=== PATIENT | female | born 1940 | race Caucasian/White ===

== ENCOUNTER 2017-05-04 11:20 | Inpatient (IN) | payer MEDICARE, OTHER ==
[2017-05-04] MEDS ORDERED: Temazepam 15 MG Cap PO PRN (11:43)
[2017-05-04] MEDS ORDERED: Albuterol 0.083% 2.5 MG/3 ML Neb Soln NEB PRN (11:43)
[2017-05-04] MEDS ORDERED: Ondansetron 4 MG Tab.DIS PO PRN (11:43)
[2017-05-04] MEDS ORDERED: Sodium Chloride 0.9% 10 ML Syringe FLUSH PRN (11:43)
[2017-05-04] MEDS ORDERED: Magnesium Hydroxide 400 MG/5 ML Susp 30 ML Cup PO PRN (11:43)
[2017-05-04] MEDS ORDERED: Acetaminophen 325 MG Tab PO PRN (11:43)
[2017-05-04 12:21] LABS: CHLORIDE,CL 98 mEq/L (98-106); SODIUM,NA 135 mEq/L (136-145)
[2017-05-04] MEDS ORDERED: Non-Formulary Medication 1 Each (Fluticasone/Vilanterol [Breo Ellipta 200-25 Mcg Inh] 1 EA IH PRN (12:35)
[2017-05-04] MEDS: Levofloxacin/Dextrose 5%-Water 500 MG in Premix Bag 1 BAG IV SCH (12:43)
[2017-05-04] MEDS: methylPREDNISolone Sodium Succinate 125 MG/2 ML SDV IVPUSH SCH ×2 (12:44→22:51)
[2017-05-04] MEDS: Sodium Chloride 0.9% 1,000 ML IV SCH ×2 (12:44→20:23)
[2017-05-04] MEDS: Albuterol/Ipratropium 3.0-0.5 MG/3 ML Neb Soln NEB SCH ×3 (12:44→20:23)
[2017-05-04] MEDS: Enoxaparin 40 MG/0.4 ML Syringe SUBCUT SCH (14:03)
[2017-05-04] MEDS ORDERED: Multivitamin Tab PO SCH (20:00)
[2017-05-04] MEDS: Simvastatin 20 MG Tab ** OWN MED PO SCH (20:26)
[2017-05-04] MEDS: ATENOLOL 25 MG PO SCH (20:26)
[2017-05-04] MEDS: BIMATOPROST EYEBOTH SCH (22:51)
[2017-05-05] MEDS: Sodium Chloride 0.9% 1,000 ML IV SCH (04:35)
[2017-05-05 07:12] LABS: CHLORIDE,CL 105 mEq/L (98-106); SODIUM,NA 140 mEq/L (136-145)
[2017-05-05] MEDS: methylPREDNISolone Sodium Succinate 125 MG/2 ML SDV IVPUSH SCH ×2 (07:25→20:11)
[2017-05-05] MEDS: Albuterol/Ipratropium 3.0-0.5 MG/3 ML Neb Soln NEB SCH ×4 (07:25→20:10)
[2017-05-05] MEDS: [UNRECOGNIZED DRUG - OTHER] PO SCH (07:26)
[2017-05-05] MEDS: [UNRECOGNIZED DRUG - OTHER] PO SCH (07:26)
[2017-05-05] MEDS: Lisinopril 20 MG Tab ** OWN MED PO SCH (07:27)
[2017-05-05] MEDS ORDERED: Lisinopril 20 MG Tab PO SCH (08:00)
[2017-05-05] MEDS: Levofloxacin/Dextrose 5%-Water 500 MG in Premix Bag 1 BAG IV SCH (12:41)
[2017-05-05] MEDS: Enoxaparin 40 MG/0.4 ML Syringe SUBCUT SCH (12:41)
--- NOTE | 2017-05-05 12:50 | PCM.PN ---
- General Info Date of Service: 05/05/17 Admission Dx/Problem (Free Text): Bronchitis Functional Status: Reports: Pain Controlled, Tolerating Diet. Denies: Ambulating - Review of Systems General: Reports: Weakness, Fatigue. Denies: Fever HEENT: Reports: Rhinitis. Denies: Sore Throat Pulmonary: Reports: Shortness of Breath, Cough, Wheezing Cardiovascular: Reports: No Symptoms Gastrointestinal: Denies: Abdominal Pain, Constipation, Diarrhea, Nausea, Vomiting Genitourinary: Reports: No Symptoms Musculoskeletal: Reports: No Symptoms Skin: Reports: No Symptoms Neurological: Reports: No Symptoms, Gait Disturbance - Patient Data Vitals - Most Recent: Last Vital Signs Temp 98.3 F 05/05/17 11:30 Pulse 68 05/05/17 11:30 Resp 20 05/05/17 11:30 BP 137/69 05/05/17 11:30 Pulse Ox 92 L 05/05/17 11:30 Weight - Most Recent: 190 lb I&O - Last 24 Hours: Intake & Output 05/04/17 05/05/17 05/05/17 22:59 06:59 14:59 Intake Total 956 1000 Balance 956 1000 Lab Results Last 24 Hours: Laboratory Results - last 24 hr 05/05/17 05/05/17 Range/Units 06:45 06:45 WBC 7.4 (5.0-10.0) 10^3/uL RBC 4.24 (4.00-5.50) 10^6/uL Hgb 12.5 (12.0-16.0) g/dL Hct 37.9 (37.0-47.0) % MCV 89.4 (82.0-94.0) fL MCH 29.5 (27.0-32.0) pg MCHC 33.0 (33.0-38.0) g/dL RDW Coeff of [place] 13.9 (11.0-15.0) % Plt Count 172 (150-400) 10^3/uL Neut % (Auto) 83.4 (35-85) % Lymph % (Auto) 13.8 (10-55) % [place] % (Auto) 2.7 (0-16) % Eos % (Auto) 0.1 (0-5) % Baso % (Auto) 0 (0-3) % Neut # (Auto) 6.16 (1.80-7.00) 10^3/uL Lymph # (Auto) 1.02 (1.00-4.80) 10^3/uL [place] # (Auto) 0.20 (0.00-0.80) 10^3/uL Eos # (Auto) 0.01 (0.00-0.45) 10^3/uL Baso # (Auto) 0.00 10^3/uL Sodium 140 (136-145) mEq/L Potassium 4.7 (3.5-5.0) mEq/L Chloride 105 (98-106) mEq/L Carbon Dioxide 28 (21-32) mmol/L BUN 10 (7-18) mg/dL Creatinine 0.6 (0.6-1.0) mg/dL Est Cr Clr Drug Dosing 65.98 mL/min Estimated GFR (MDRD) > 60 (>=60) mL/min Glucose 159 H D (75-99) mg/dL Calcium 8.6 (8.4-10.1) mg/dL C-Reactive Protein 15.1 H (0.2-0.8) mg/dL Med Orders - Current: Current Medications Acetaminophen (Tylenol) 650 mg PO Q4H PRN PRN Reason: Pain (Mild 1-3)/fever Albuterol (Proventil Neb Soln) 2.5 mg NEB Q4H PRN PRN Reason: Dyspnea Albuterol/Ipratropium (Duoneb 3.0-0.5 Mg/3 Ml) 3 ml NEB QIDRT [facility] Last Admin: 05/05/17 12:41 Dose: 3 ml Atenolol (Tenormin) 25 mg PO BEDTIME [facility] Last Admin: 05/04/17 20:26 Dose: Not Given Enoxaparin Sodium (Lovenox) 40 mg SUBCUT Q24H [facility] Last Admin: 05/05/17 12:41 Dose: 40 mg Levofloxacin/Dextrose 500 mg/ (Premix) 100 mls @ 100 mls/hr IV Q24H [facility] Last Admin: 05/05/17 12:41 Dose: 100 mls/hr Lisinopril (Prinivil) 10 mg PO DAILY [facility] Last Admin: 05/05/17 07:27 Dose: 10 mg Magnesium Hydroxide (Milk Of Magnesia) 30 ml PO Q12H PRN PRN Reason: Constipation Methylprednisolone Sodium Succinate (Solu-Medrol) 125 mg IVPUSH Q12H [facility] Last Admin: 05/05/17 07:25 Dose: 125 mg Non-Formulary Medication (Fluticasone/Vilanterol [Breo Ellipta 200-25 Mcg Inh]) 1 each IH ASDIRECTED PRN PRN Reason: Shortness of Breath Ocucel Complex 1 Tab ( Own Med ) 1 tab PO DAILY [facility] Last Admin: 05/05/17 07:26 Dose: 1 tab Ocular Nutrition Vitamin 3 Tab Own Med 3 tab PO DAILY [facility] Last Admin: 05/05/17 07:26 Dose: 3 tab Bimatoprost [Lumigan 0.01% Ophth Soln] Ophth Own Med 1 drop EYEBOTH BEDTIME [facility] Last Admin: 05/04/17 22:51 Dose: 1 drop Multi For Her (Multi (-Vit) Own Med ) 1 each PO BEDTIME [facility] Ondansetron HCl (Zofran Odt) 4 mg PO Q4H PRN PRN Reason: nausea, able to take PO Promethazine HCl/Codeine (Phenergan With Codeine) 10 ml PO Q6H PRN PRN Reason: Cough Simvastatin (Zocor) 20 mg PO BEDTIME [facility] Last Admin: 05/04/17 20:26 Dose: Not Given Sodium Chloride (Saline Flush) 10 ml FLUSH ASDIRECTED PRN PRN Reason: Keep Vein Open Temazepam (Restoril) 15 mg PO BEDTIME PRN PRN Reason: Sleep Discontinued Medications Sodium Chloride (Normal Saline) 1,000 mls @ 125 mls/hr IV ASDIRECTED [facility] Last Admin: 05/05/17 04:35 Dose: 125 mls/hr Methylprednisolone Sodium Succinate (Solu-Medrol) 125 mg IVPUSH Q12H [facility] Last Admin: 05/04/17 22:51 Dose: 125 mg Multivitamins/Minerals/Vitamin C (Tab-A-Connie) 1 tab PO BEDTIME [facility] Last Admin: 05/04/17 20:26 Dose: Not Given - Exam Quality Assessment: Supplemental Oxygen General: Alert, Oriented HEENT: Mucous Membr. Moist/[place] Neck: Supple Lungs: Decreased Breath Sounds, Wheezing Cardiovascular: Regular Rate, Regular Rhythm GI/Abdominal Exam: Normal Bowel Sounds, Soft, Non-Tender Extremities: Normal Inspection, No Pedal Edema Skin: Warm, Dry Neurological: No New Focal Deficit Psy/Mental Status: Alert, Normal Affect, Normal Mood - Problem List & Annotations (1) Bronchitis SNOMED Code(s): 45271830 Code(s): J40 - BRONCHITIS, NOT SPECIFIED ACUTE OR CHRONIC Status: Acute Priority: High Current Visit: Yes (2) Shortness of breath SNOMED Code(s): 012583487 Code(s): R06.02 - SHORTNESS OF BREATH Status: Acute Priority: High Current Visit: Yes - Problem List Review Problem List Initiated/Reviewed/Updated: Yes - My Orders Last 24 Hours: My Active Orders 05/04/17 11:46 RT Aerosol Therapy [RC] 0800,1200,1600,199905/04/17 12:00 Albuterol/Ipratropium [DuoNeb 3.0-0.5 MG/3 ML] 3 ml NEB QIDRT Levofloxacin/Dextrose 5%-Water [Levaquin in D5W 500 MG/100 ML] 500 mg Premix Bag 1 bag IV Q24H 05/04/17 12:35 Fluticasone/Vilanterol [Breo Ellipta 200-25 Mcg INH] 1 each IH ASDIRECTED PRN 05/04/17 13:00 Enoxaparin [Lovenox] 40 mg SUBCUT Q24H 05/04/17 13:36 Antiembolic Devices [RC] 1000,2200 [place] Hose [Antiembolic Hose] [OM.PC] Routine 05/04/17 20:00 Atenolol [Tenormin] 25 mg PO BEDTIME Bimatoprost [LUMIGAN 0.01% Ophth Soln] 1 drop EYEBOTH BEDTIME Simvastatin [Zocor] 20 mg PO BEDTIME 05/04/17 22:12 Non-Formulary Medication [NF Drug] 1 each PO BEDTIME 05/04/17 Lunch Regular Diet [DIET] 05/05/17 08:00 Lisinopril [Prinivil] 10 mg PO DAILY Ocucel Complex 1 tab PO DAILY Ocular Nutrition Vitamin 3 tab PO DAILY methylPREDNISolone Sod Succ [Solu-MEDROL] 125 mg IVPUSH Q12H 05/05/17 11:42 INFLUENZA A+B AG SCREEN [RM] Stat 05/05/17 11:43 Codeine/Promethazine [Phenergan with Codeine] 10 ml PO Q6H PRN 05/05/17 12:35 C-REACTIVE PROTEIN [CHEM] Timed 05/06/17 05:11 BASIC METABOLIC PANEL,BMP [CHEM] AM CBC WITH AUTO DIFF [HEME] AM - Assessment Assessment:: Bronchitis Shortness of breath - Plan Plan:: Patient not feeling well today, states was doing better yesterday afternoon but more "tough" again this am. Chest more tight. She does admit that she did not sleep much last night due to cough. More wheezy again this am. Oxygen weaned down to 1 liter, maintaining sats at 92%. Voiding frequently now. Labs show improvement of WBC, CRP. Will continue with Levaquin, Solu Medrol and nebs. Stop IV fluids. Test for influenza. Transferred to acute care.
[2017-05-05] MEDS: Simvastatin 20 MG Tab ** OWN MED PO SCH (20:11)
[2017-05-05] MEDS: BIMATOPROST EYEBOTH SCH (20:11)
[2017-05-05] MEDS: MULTI FOR HER PO SCH (20:11)
[2017-05-05] MEDS: ATENOLOL 25 MG PO SCH (20:11)
[2017-05-05] MEDS: Codeine/Promethazine 10-6.25 MG/5 ML Syrup 5 ML UD Cup PO PRN (20:14)
[2017-05-06] MEDS: Lisinopril 20 MG Tab ** OWN MED PO SCH (07:28)
[2017-05-06] MEDS: Albuterol/Ipratropium 3.0-0.5 MG/3 ML Neb Soln NEB SCH ×4 (07:28→19:25)
[2017-05-06] MEDS: methylPREDNISolone Sodium Succinate 125 MG/2 ML SDV IVPUSH SCH ×2 (07:29→19:25)
[2017-05-06 07:30] LABS: CHLORIDE,CL 105 mEq/L (98-106); SODIUM,NA 141 mEq/L (136-145)
[2017-05-06] MEDS: [UNRECOGNIZED DRUG - OTHER] PO SCH (07:33)
[2017-05-06] MEDS: [UNRECOGNIZED DRUG - OTHER] PO SCH (07:33)
[2017-05-06] MEDS: Enoxaparin 40 MG/0.4 ML Syringe SUBCUT SCH (12:18)
[2017-05-06] MEDS: Levofloxacin/Dextrose 5%-Water 500 MG in Premix Bag 1 BAG IV SCH (12:18)
--- NOTE | 2017-05-06 13:05 | PCM.PN ---
- General Info Date of Service: 05/06/17 Admission Dx/Problem (Free Text): Bronchitis Functional Status: Reports: Pain Controlled, Tolerating Diet. Denies: Ambulating - Review of Systems General: Reports: Weakness, Fatigue, Malaise. Denies: Fever HEENT: Reports: Sinus Congestion, Rhinitis. Denies: Ear Pain, Sore Throat Pulmonary: Reports: Shortness of Breath, Cough, Wheezing. Denies: Sputum Cardiovascular: Denies: Chest Pain, Edema, Lightheadedness Gastrointestinal: Denies: Abdominal Pain, Nausea, Vomiting Genitourinary: Reports: No Symptoms Skin: Reports: No Symptoms Neurological: Reports: No Symptoms - Patient Data Vitals - Most Recent: Last Vital Signs Temp 98.2 F 05/06/17 12:00 Pulse 79 05/06/17 12:00 Resp 18 05/06/17 12:00 BP 151/64 H 05/06/17 12:00 Pulse Ox 96 05/06/17 12:00 Weight - Most Recent: 190 lb Lab Results Last 24 Hours: Laboratory Results - last 24 hr 05/06/17 05/06/17 Range/Units 07:00 07:00 WBC 12.4 H (5.0-10.0) 10^3/uL RBC 4.01 (4.00-5.50) 10^6/uL Hgb 11.8 L (12.0-16.0) g/dL Hct 36.3 L (37.0-47.0) % MCV 90.5 (82.0-94.0) fL MCH 29.4 (27.0-32.0) pg MCHC 32.5 L (33.0-38.0) g/dL RDW Coeff of [place] 14.0 (11.0-15.0) % Plt Count 198 (150-400) 10^3/uL Neut % (Auto) 85.7 H (35-85) % Lymph % (Auto) 8.5 L (10-55) % [place] % (Auto) 5.8 (0-16) % Eos % (Auto) 0 (0-5) % Baso % (Auto) 0 (0-3) % Neut # (Auto) 10.65 H (1.80-7.00) 10^3/uL Lymph # (Auto) 1.06 (1.00-4.80) 10^3/uL [place] # (Auto) 0.72 (0.00-0.80) 10^3/uL Eos # (Auto) 0.00 (0.00-0.45) 10^3/uL Baso # (Auto) 0.00 10^3/uL Sodium 141 (136-145) mEq/L Potassium 4.5 (3.5-5.0) mEq/L Chloride 105 (98-106) mEq/L Carbon Dioxide 29 (21-32) mmol/L BUN 14 (7-18) mg/dL Creatinine 0.7 (0.6-1.0) mg/dL Est Cr Clr Drug Dosing 56.56 mL/min Estimated GFR (MDRD) > 60 (>=60) mL/min Glucose 142 H (75-99) mg/dL Calcium 8.7 (8.4-10.1) mg/dL [place] Results Last 24 Hours: Microbiology 05/05/17 12:35 Influenza Type A Antigen Screen - Final Nasopharyngeal Swab - Nare, Unspecified NEGATIVE INFLUENZA A VIRUS AG Influenza Type B Antigen Screen - Final NEGATIVE INFLUENZA B VIRUS AG Med Orders - Current: Current Medications Acetaminophen (Tylenol) 650 mg PO Q4H PRN PRN Reason: Pain (Mild 1-3)/fever Albuterol (Proventil Neb Soln) 2.5 mg NEB Q4H PRN PRN Reason: Dyspnea Albuterol/Ipratropium (Duoneb 3.0-0.5 Mg/3 Ml) 3 ml NEB QIDRT [facility] Last Admin: 05/06/17 12:18 Dose: 3 ml Atenolol (Tenormin) 25 mg PO BEDTIME [facility] Last Admin: 05/05/17 20:11 Dose: 25 mg Enoxaparin Sodium (Lovenox) 40 mg SUBCUT Q24H [facility] Last Admin: 05/06/17 12:18 Dose: 40 mg Levofloxacin/Dextrose 500 mg/ (Premix) 100 mls @ 100 mls/hr IV Q24H [facility] Last Admin: 05/06/17 12:18 Dose: 100 mls/hr Lisinopril (Prinivil) 10 mg PO DAILY [facility] Last Admin: 05/06/17 07:28 Dose: 10 mg Magnesium Hydroxide (Milk Of Magnesia) 30 ml PO Q12H PRN PRN Reason: Constipation Methylprednisolone Sodium Succinate (Solu-Medrol) 125 mg IVPUSH Q12H [facility] Last Admin: 05/06/17 07:29 Dose: 125 mg Non-Formulary Medication (Fluticasone/Vilanterol [Breo Ellipta 200-25 Mcg Inh]) 1 each IH ASDIRECTED PRN PRN Reason: Shortness of Breath Ocucel Complex 1 Tab ( Own Med ) 1 tab PO DAILY [facility] Last Admin: 05/06/17 07:33 Dose: 1 tab Ocular Nutrition Vitamin 3 Tab Own Med 3 tab PO DAILY [facility] Last Admin: 05/06/17 07:33 Dose: 3 tab Bimatoprost [Lumigan 0.01% Ophth Soln] Ophth Own Med 1 drop EYEBOTH BEDTIME [facility] Last Admin: 05/05/17 20:11 Dose: 1 drop Multi For Her (Multi (-Vit) Own Med ) 1 each PO BEDTIME [facility] Last Admin: 05/05/17 20:11 Dose: 1 each Ondansetron HCl (Zofran Odt) 4 mg PO Q4H PRN PRN Reason: nausea, able to take PO Promethazine HCl/Codeine (Phenergan With Codeine) 10 ml PO Q6H PRN PRN Reason: Cough Last Admin: 05/05/17 20:14 Dose: 10 ml Simvastatin (Zocor) 20 mg PO BEDTIME [facility] Last Admin: 05/05/17 20:11 Dose: 20 mg Sodium Chloride (Saline Flush) 10 ml FLUSH ASDIRECTED PRN PRN Reason: Keep Vein Open Temazepam (Restoril) 15 mg PO BEDTIME PRN PRN Reason: Sleep Discontinued Medications Sodium Chloride (Normal Saline) 1,000 mls @ 125 mls/hr IV ASDIRECTED [facility] Last Admin: 05/05/17 04:35 Dose: 125 mls/hr Methylprednisolone Sodium Succinate (Solu-Medrol) 125 mg IVPUSH Q12H [facility] Last Admin: 05/04/17 22:51 Dose: 125 mg Multivitamins/Minerals/Vitamin C (Tab-A-Connie) 1 tab PO BEDTIME [facility] Last Admin: 05/04/17 20:26 Dose: Not Given - Exam General: Alert, Oriented HEENT: Mucous Membr. Moist/[place] Neck: Supple Lungs: Decreased Breath Sounds, Wheezing Cardiovascular: Regular Rate, Regular Rhythm GI/Abdominal Exam: Normal Bowel Sounds, Soft, Non-Tender Extremities: Normal Inspection, No Pedal Edema Skin: Warm, Dry Neurological: No New Focal Deficit - Problem List & Annotations (1) Bronchitis SNOMED Code(s): 47348928 Code(s): J40 - BRONCHITIS, NOT SPECIFIED ACUTE OR CHRONIC Status: Acute Priority: High Current Visit: Yes (2) Shortness of breath SNOMED Code(s): 034098893 Code(s): R06.02 - SHORTNESS OF BREATH Status: Acute Priority: High Current Visit: Yes - Problem List Review Problem List Initiated/Reviewed/Updated: Yes - Assessment Assessment:: Bronchitis Shortness of breath - Plan Plan:: Patient not feeling well today, states was doing better yesterday afternoon but more "tough" again this am. Chest more tight. She does admit that she did not sleep much last night due to cough. More wheezy again this am. Oxygen weaned down to 1 liter, maintaining sats at 92%. Voiding frequently now. Labs show improvement of WBC, CRP. Will continue with Levaquin, Solu Medrol and nebs. Stop IV fluids. Test for influenza. Transferred to acute care. 05-06-2017 Patient states feeling better today, was able to sleep last night. Still feels tightness in her chest, audible wheezing at times. Continues to require 1 liter of oxygen to maintain sats. WBC elevated to 12.4 today but is receiving IV Solu Medrol every 2 hours, CRP stable at 15.3. Appetite good Will continue with Levaquin, Solu Medrol. Encouraged ambulation. Ongoing cares. Inappropriate for discharge today due to lung status and oxygen requirement.
[2017-05-06] MEDS: Codeine/Promethazine 10-6.25 MG/5 ML Syrup 5 ML UD Cup PO PRN (15:53)
[2017-05-06] MEDS: BIMATOPROST EYEBOTH SCH (19:22)
[2017-05-06] MEDS: MULTI FOR HER PO SCH (19:23)
[2017-05-06] MEDS: Simvastatin 20 MG Tab ** OWN MED PO SCH (19:24)
[2017-05-06] MEDS: ATENOLOL 25 MG PO SCH (19:24)
[2017-05-07] MEDS: methylPREDNISolone Sodium Succinate 125 MG/2 ML SDV IVPUSH SCH ×2 (07:37→19:48)
[2017-05-07] MEDS: Lisinopril 20 MG Tab ** OWN MED PO SCH (07:37)
[2017-05-07] MEDS: Albuterol/Ipratropium 3.0-0.5 MG/3 ML Neb Soln NEB SCH ×4 (07:37→19:48)
[2017-05-07] MEDS: [UNRECOGNIZED DRUG - OTHER] PO SCH (07:38)
[2017-05-07] MEDS: [UNRECOGNIZED DRUG - OTHER] PO SCH (07:38)
--- NOTE | 2017-05-07 10:48 | PCM.PN ---
- General Info Date of Service: 05/07/17 Admission Dx/Problem (Free Text): Bronchitis Functional Status: Reports: Pain Controlled, Tolerating Diet, Ambulating - Review of Systems General: Reports: Fatigue. Denies: Fever, Weakness HEENT: Denies: Ear Pain, Sinus Congestion, Sore Throat Pulmonary: Reports: Shortness of Breath, Cough, Wheezing Cardiovascular: Denies: Chest Pain, Edema, Lightheadedness Gastrointestinal: Reports: No Symptoms Genitourinary: Reports: No Symptoms Musculoskeletal: Reports: No Symptoms Skin: Reports: No Symptoms Neurological: Reports: No Symptoms - Patient Data Vitals - Most Recent: Last Vital Signs Temp 97.4 F 05/07/17 08:00 Pulse 56 L 05/07/17 08:00 Resp 24 H 05/07/17 08:00 BP 150/68 H 05/07/17 08:00 Pulse Ox 95 05/07/17 08:00 Weight - Most Recent: 190 lb Lab Results Last 24 Hours: Laboratory Results - last 24 hr 05/07/17 05/07/17 Range/Units 05:11 07:00 WBC 10.7 H (5.0-10.0) 10^3/uL RBC 3.91 L (4.00-5.50) 10^6/uL Hgb 11.6 L (12.0-16.0) g/dL Hct 35.9 L (37.0-47.0) % MCV 91.8 (82.0-94.0) fL MCH 29.7 (27.0-32.0) pg MCHC 32.3 L (33.0-38.0) g/dL RDW Coeff of [place] 14.3 (11.0-15.0) % Plt Count 217 (150-400) 10^3/uL Neut % (Auto) 88.6 H (35-85) % Lymph % (Auto) 6.5 L (10-55) % [place] % (Auto) 4.9 (0-16) % Eos % (Auto) 0 (0-5) % Baso % (Auto) 0 (0-3) % Neut # (Auto) 9.47 H (1.80-7.00) 10^3/uL Lymph # (Auto) 0.69 L (1.00-4.80) 10^3/uL [place] # (Auto) 0.52 (0.00-0.80) 10^3/uL Eos # (Auto) 0.00 (0.00-0.45) 10^3/uL Baso # (Auto) 0.00 10^3/uL C-Reactive Protein 3.4 H (0.2-0.8) mg/dL Med Orders - Current: Current Medications Acetaminophen (Tylenol) 650 mg PO Q4H PRN PRN Reason: Pain (Mild 1-3)/fever Albuterol (Proventil Neb Soln) 2.5 mg NEB Q4H PRN PRN Reason: Dyspnea Albuterol/Ipratropium (Duoneb 3.0-0.5 Mg/3 Ml) 3 ml NEB QIDRT [facility] Last Admin: 05/07/17 07:37 Dose: 3 ml Atenolol (Tenormin) 25 mg PO BEDTIME [facility] Last Admin: 05/06/17 19:24 Dose: 25 mg Enoxaparin Sodium (Lovenox) 40 mg SUBCUT Q24H [facility] Last Admin: 05/06/17 12:18 Dose: 40 mg Levofloxacin/Dextrose 500 mg/ (Premix) 100 mls @ 100 mls/hr IV Q24H [facility] Last Admin: 05/06/17 12:18 Dose: 100 mls/hr Lisinopril (Prinivil) 10 mg PO DAILY [facility] Last Admin: 05/07/17 07:37 Dose: 10 mg Magnesium Hydroxide (Milk Of Magnesia) 30 ml PO Q12H PRN PRN Reason: Constipation Methylprednisolone Sodium Succinate (Solu-Medrol) 125 mg IVPUSH Q12H [facility] Last Admin: 05/07/17 07:37 Dose: 125 mg Non-Formulary Medication (Fluticasone/Vilanterol [Breo Ellipta 200-25 Mcg Inh]) 1 each IH ASDIRECTED PRN PRN Reason: Shortness of Breath Ocucel Complex 1 Tab ( Own Med ) 1 tab PO DAILY [facility] Last Admin: 05/07/17 07:38 Dose: 1 tab Ocular Nutrition Vitamin 3 Tab Own Med 3 tab PO DAILY [facility] Last Admin: 05/07/17 07:38 Dose: 3 tab Bimatoprost [Lumigan 0.01% Ophth Soln] Ophth Own Med 1 drop EYEBOTH BEDTIME [facility] Last Admin: 05/06/17 19:22 Dose: 1 drop Ondansetron HCl (Zofran Odt) 4 mg PO Q4H PRN PRN Reason: nausea, able to take PO Multivitamin For Her (Ptom) 1 each PO BEDTIME [facility] Promethazine HCl/Codeine (Phenergan With Codeine) 10 ml PO Q6H PRN PRN Reason: Cough Last Admin: 05/06/17 15:53 Dose: 10 ml Simvastatin (Zocor) 20 mg PO BEDTIME [facility] Last Admin: 05/06/17 19:24 Dose: 20 mg Sodium Chloride (Saline Flush) 10 ml FLUSH ASDIRECTED PRN PRN Reason: Keep Vein Open Temazepam (Restoril) 15 mg PO BEDTIME PRN PRN Reason: Sleep Discontinued Medications Sodium Chloride (Normal Saline) 1,000 mls @ 125 mls/hr IV ASDIRECTED [facility] Last Admin: 05/05/17 04:35 Dose: 125 mls/hr Methylprednisolone Sodium Succinate (Solu-Medrol) 125 mg IVPUSH Q12H [facility] Last Admin: 05/04/17 22:51 Dose: 125 mg Multivitamins/Minerals/Vitamin C (Tab-A-Connie) 1 tab PO BEDTIME [facility] Last Admin: 05/04/17 20:26 Dose: Not Given Multi For Her (Multi (-Vit) Own Med ) 1 each PO BEDTIME [facility] Last Admin: 05/06/17 19:23 Dose: 1 each - Exam Quality Assessment: Supplemental Oxygen General: Alert, Oriented HEENT: Mucous Membr. Moist/[place] Neck: Supple Lungs: Decreased Breath Sounds, Wheezing Cardiovascular: Regular Rate, Regular Rhythm GI/Abdominal Exam: Normal Bowel Sounds, Soft, Non-Tender Extremities: Normal Inspection, No Pedal Edema Skin: Warm, Dry Neurological: No New Focal Deficit - Problem List & Annotations (1) Bronchitis SNOMED Code(s): 98231046 Code(s): J40 - BRONCHITIS, NOT SPECIFIED ACUTE OR CHRONIC Status: Acute Priority: High Current Visit: Yes (2) Shortness of breath SNOMED Code(s): 086170067 Code(s): R06.02 - SHORTNESS OF BREATH Status: Acute Priority: High Current Visit: Yes - Problem List Review Problem List Initiated/Reviewed/Updated: Yes - My Orders Last 24 Hours: My Active Orders 05/07/17 20:00 Patient's Own Medication [Ptom] 1 each PO BEDTIME - Assessment Assessment:: Bronchitis Shortness of breath - Plan Plan:: Patient not feeling well today, states was doing better yesterday afternoon but more "tough" again this am. Chest more tight. She does admit that she did not sleep much last night due to cough. More wheezy again this am. Oxygen weaned down to 1 liter, maintaining sats at 92%. Voiding frequently now. Labs show improvement of WBC, CRP. Will continue with Levaquin, Solu Medrol and nebs. Stop IV fluids. Test for influenza. Transferred to acute care. 05-06-2017 Patient states feeling better today, was able to sleep last night. Still feels tightness in her chest, audible wheezing at times. Continues to require 1 liter of oxygen to maintain sats. WBC elevated to 12.4 today but is receiving IV Solu Medrol every 2 hours, CRP stable at 15.3. Appetite good Will continue with Levaquin, Solu Medrol. Encouraged ambulation. Ongoing cares. Inappropriate for discharge today due to lung status and oxygen requirement. 05-07-2017 Patient up and ambulating more in her room, does still get dyspneic with activity. Still requires oxygen as her sats will drop in to the 80s with oxygen off. Does feel she has better air exchange, less wheezing. Cough still tight, nonproductive. WBC stable. CRP improved to 3.5. Encourage ambulation in halls. Incentive spirometry. Continue nebs and steroids. Possible transfer to swing bed for ongoing cares if not improved by tomorrow.
[2017-05-07] MEDS: Levofloxacin/Dextrose 5%-Water 500 MG in Premix Bag 1 BAG IV SCH (11:52)
[2017-05-07] MEDS: Enoxaparin 40 MG/0.4 ML Syringe SUBCUT SCH (12:00)
[2017-05-07] MEDS: BIMATOPROST EYEBOTH SCH (19:47)
[2017-05-07] MEDS: MULTIVITAMIN FOR HER PO SCH (19:47)
[2017-05-07] MEDS: Simvastatin 20 MG Tab ** OWN MED PO SCH (19:48)
[2017-05-07] MEDS: ATENOLOL 25 MG PO SCH (19:48)
[2017-05-08] MEDS: Lisinopril 20 MG Tab ** OWN MED PO SCH (08:17)
[2017-05-08] MEDS: methylPREDNISolone Sodium Succinate 125 MG/2 ML SDV IVPUSH SCH ×3 (08:17→19:58)
[2017-05-08] MEDS: [UNRECOGNIZED DRUG - OTHER] PO SCH (08:18)
[2017-05-08] MEDS: Albuterol/Ipratropium 3.0-0.5 MG/3 ML Neb Soln NEB SCH ×4 (08:18→19:55)
[2017-05-08] MEDS: [UNRECOGNIZED DRUG - OTHER] PO SCH (08:18)
--- NOTE | 2017-05-08 10:59 | PCM.PN ---
- General Info Date of Service: 05/08/17 Admission Dx/Problem (Free Text): Bronchitis Functional Status: Reports: Pain Controlled, Tolerating Diet, Ambulating - Review of Systems General: Reports: Weakness, Fatigue. Denies: Fever HEENT: Reports: Rhinitis. Denies: Ear Pain, Headaches, Sinus Congestion, Sore Throat Pulmonary: Reports: Shortness of Breath, Cough, Sputum, Wheezing Cardiovascular: Denies: Chest Pain, Edema, Lightheadedness Gastrointestinal: Denies: Abdominal Pain, Flatus, Hematochezia Genitourinary: Reports: No Symptoms Musculoskeletal: Reports: No Symptoms Skin: Reports: No Symptoms Neurological: Reports: No Symptoms - Patient Data Vitals - Most Recent: Last Vital Signs Temp 98.0 F 05/08/17 08:00 Pulse 53 L 05/08/17 08:00 Resp 20 05/08/17 08:00 BP 164/70 H 05/08/17 08:17 Pulse Ox 92 L 05/08/17 08:00 Weight - Most Recent: 190 lb Med Orders - Current: Current Medications Acetaminophen (Tylenol) 650 mg PO Q4H PRN PRN Reason: Pain (Mild 1-3)/fever Albuterol (Proventil Neb Soln) 2.5 mg NEB Q4H PRN PRN Reason: Dyspnea Albuterol/Ipratropium (Duoneb 3.0-0.5 Mg/3 Ml) 3 ml NEB QIDRT [facility] Last Admin: 05/08/17 08:18 Dose: 3 ml Atenolol (Tenormin) 25 mg PO BEDTIME [facility] Last Admin: 05/07/17 19:48 Dose: 25 mg Enoxaparin Sodium (Lovenox) 40 mg SUBCUT Q24H [facility] Last Admin: 05/07/17 12:00 Dose: 40 mg Levofloxacin/Dextrose 500 mg/ (Premix) 100 mls @ 100 mls/hr IV Q24H [facility] Last Admin: 05/07/17 11:52 Dose: 100 mls/hr Lisinopril (Prinivil) 10 mg PO DAILY [facility] Last Admin: 05/08/17 08:17 Dose: 10 mg Magnesium Hydroxide (Milk Of Magnesia) 30 ml PO Q12H PRN PRN Reason: Constipation Methylprednisolone Sodium Succinate (Solu-Medrol) 125 mg IVPUSH Q12H [facility] Last Admin: 05/08/17 08:17 Dose: 125 mg Non-Formulary Medication (Fluticasone/Vilanterol [Breo Ellipta 200-25 Mcg Inh]) 1 each IH ASDIRECTED PRN PRN Reason: Shortness of Breath Ocucel Complex 1 Tab ( Own Med ) 1 tab PO DAILY [facility] Last Admin: 05/08/17 08:18 Dose: 1 tab Ocular Nutrition Vitamin 3 Tab Own Med 3 tab PO DAILY [facility] Last Admin: 05/08/17 08:18 Dose: 3 tab Bimatoprost [Lumigan 0.01% Ophth Soln] Ophth Own Med 1 drop EYEBOTH BEDTIME [facility] Last Admin: 05/07/17 19:47 Dose: 1 drop Ondansetron HCl (Zofran Odt) 4 mg PO Q4H PRN PRN Reason: nausea, able to take PO Multivitamin For Her (Ptom) 1 each PO BEDTIME [facility] Last Admin: 05/07/17 19:47 Dose: 1 each Promethazine HCl/Codeine (Phenergan With Codeine) 10 ml PO Q6H PRN PRN Reason: Cough Last Admin: 05/06/17 15:53 Dose: 10 ml Simvastatin (Zocor) 20 mg PO BEDTIME [facility] Last Admin: 05/07/17 19:48 Dose: 20 mg Sodium Chloride (Saline Flush) 10 ml FLUSH ASDIRECTED PRN PRN Reason: Keep Vein Open Temazepam (Restoril) 15 mg PO BEDTIME PRN PRN Reason: Sleep Discontinued Medications Sodium Chloride (Normal Saline) 1,000 mls @ 125 mls/hr IV ASDIRECTED [facility] Last Admin: 05/05/17 04:35 Dose: 125 mls/hr Methylprednisolone Sodium Succinate (Solu-Medrol) 125 mg IVPUSH Q12H [facility] Last Admin: 05/04/17 22:51 Dose: 125 mg Multivitamins/Minerals/Vitamin C (Tab-A-Connie) 1 tab PO BEDTIME [facility] Last Admin: 05/04/17 20:26 Dose: Not Given Multi For Her (Multi (-Vit) Own Med ) 1 each PO BEDTIME [facility] Last Admin: 05/06/17 19:23 Dose: 1 each - Exam Quality Assessment: Supplemental Oxygen General: Alert, Oriented HEENT: Mucous Membr. Moist/[place] Neck: Supple Lungs: Decreased Breath Sounds, Wheezing Cardiovascular: Regular Rate, Regular Rhythm GI/Abdominal Exam: Normal Bowel Sounds, Soft, Non-Tender Extremities: Normal Inspection, No Pedal Edema Skin: Warm, Dry Neurological: No New Focal Deficit - Problem List & Annotations (1) Bronchitis SNOMED Code(s): 96068999 Code(s): J40 - BRONCHITIS, NOT SPECIFIED ACUTE OR CHRONIC Status: Acute Priority: High Current Visit: Yes (2) Shortness of breath SNOMED Code(s): 016104181 Code(s): R06.02 - SHORTNESS OF BREATH Status: Acute Priority: High Current Visit: Yes - Problem List Review Problem List Initiated/Reviewed/Updated: Yes - My Orders Last 24 Hours: My Active Orders 05/07/17 20:00 Patient's Own Medication [Ptom] 1 each PO BEDTIME 05/08/17 11:43 Vital Signs [RC] QSHIFT - Assessment Assessment:: Bronchitis Shortness of breath - Plan Plan:: Patient not feeling well today, states was doing better yesterday afternoon but more "tough" again this am. Chest more tight. She does admit that she did not sleep much last night due to cough. More wheezy again this am. Oxygen weaned down to 1 liter, maintaining sats at 92%. Voiding frequently now. Labs show improvement of WBC, CRP. Will continue with Levaquin, Solu Medrol and nebs. Stop IV fluids. Test for influenza. Transferred to acute care. 05-06-2017 Patient states feeling better today, was able to sleep last night. Still feels tightness in her chest, audible wheezing at times. Continues to require 1 liter of oxygen to maintain sats. WBC elevated to 12.4 today but is receiving IV Solu Medrol every 2 hours, CRP stable at 15.3. Appetite good Will continue with Levaquin, Solu Medrol. Encouraged ambulation. Ongoing cares. Inappropriate for discharge today due to lung status and oxygen requirement. 05-07-2017 Patient up and ambulating more in her room, does still get dyspneic with activity. Still requires oxygen as her sats will drop in to the 80s with oxygen off. Does feel she has better air exchange, less wheezing. Cough still tight, nonproductive. WBC stable. CRP improved to 3.5. Encourage ambulation in halls. Incentive spirometry. Continue nebs and steroids. Possible transfer to swing bed for ongoing cares if not improved by tomorrow. 05-08-2017 Patient is doing well today. States was up and ambulating in cope yesterday and felt good. Still required oxygen but is weaned down to 1/2 liter at rest today. Less wheezing. Did not sleep well due to cough, now productive of clear phlegm at times. Feels clearing that out has helped immensely on her breathing. No fevers. Encouraged ambulation without oxygen today and we will see how she tolerates. Probable discharge home tomorrow as continues to improve.
[2017-05-08] MEDS: Levofloxacin/Dextrose 5%-Water 500 MG in Premix Bag 1 BAG IV SCH (12:52)
[2017-05-08] MEDS: Enoxaparin 40 MG/0.4 ML Syringe SUBCUT SCH (12:52)
[2017-05-08] MEDS: ATENOLOL 25 MG PO SCH (19:55)
[2017-05-08] MEDS: Simvastatin 20 MG Tab ** OWN MED PO SCH (19:55)
[2017-05-08] MEDS: MULTIVITAMIN FOR HER PO SCH (20:00)
[2017-05-08] MEDS: BIMATOPROST EYEBOTH SCH (20:01)
[2017-05-09] MEDS: Lisinopril 20 MG Tab ** OWN MED PO SCH (07:40)
[2017-05-09] MEDS: Albuterol/Ipratropium 3.0-0.5 MG/3 ML Neb Soln NEB SCH (07:40)
[2017-05-09] MEDS: methylPREDNISolone Sodium Succinate 125 MG/2 ML SDV IVPUSH SCH (07:41)
[2017-05-09] MEDS: [UNRECOGNIZED DRUG - OTHER] PO SCH (07:43)
[2017-05-09] MEDS: [UNRECOGNIZED DRUG - OTHER] PO SCH (07:43)
[2017-05-09] MEDS ORDERED: Levofloxacin/Dextrose 5%-Water 500 MG in Premix Bag 1 BAG IV SCH (09:45)
== END 2017-05-09 11:15 | disposition home or self-care (01) | DRG 203 ==
LOC: CC.MS 11:20 → UNDOADMOB 11:20 → CC.MS 11:43 → INTOOBSV 05-05 11:43 → OBSVTOIN 05-05 11:43
PROVIDERS: ADMIT Physician Assistant Medical; ATTEND Family Medicine
DX: R06.02 Shortness of breath (principal); J40 Bronchitis, not specified as acute or chronic; R53.1 Weakness; J45.909 Unspecified asthma, uncomplicated; R19.7 Diarrhea, unspecified; Z87.01 Personal history of pneumonia (recurrent); Z88.0 Allergy status to penicillin; Z88.1 Allergy status to other antibiotic agents; Z79.899 Other long term (current) drug therapy
CPT/HCPCS: 36415 ×2; 71046; 80048; 80053; 85025 ×2; 86140 ×2; 94640 ×4; A9270 ×4; J1650; J1956; J2930 ×3; J7030 ×3; 87804; 96361; 96365; 96372; 96374; 96376; G0378

== ENCOUNTER 2022-01-25 13:49 | Inpatient (IN) | payer MEDICARE, OTHER ==
[2022-01-25 14:55] LABS: CHLORIDE,CL 99 mEq/L (98-106); SODIUM,NA 137 mEq/L (136-145)
[2022-01-25 14:59] LABS: ESTIMATED GFR 90 mL/min (>=60)
[2022-01-25] MEDS ORDERED: Sodium Chloride 0.9% 10 ML Syringe FLUSH PRN (16:16)
[2022-01-25] MEDS ORDERED: Ondansetron 4 MG/2 ML SDV IVPUSH PRN (16:16)
[2022-01-25] MEDS ORDERED: Ketorolac 30 MG/ML SDV IVPUSH ONE (16:17)
[2022-01-25] MEDS ORDERED: Ondansetron 4 MG Tab.DIS PO PRN (16:28)
[2022-01-25] MEDS ORDERED: methylPREDNISolone Sodium Succinate 125 MG/2 ML SDV IVPUSH SCH (16:30)
[2022-01-25] MEDS: Levofloxacin/Dextrose 5%-Water 750 MG in Premix Bag 1 BAG IV SCH (17:00)
[2022-01-25] MEDS ORDERED: [UNRECOGNIZED DRUG - OTHER] PO SCH (18:00)
[2022-01-25] MEDS: Acetaminophen 325 MG Tab PO PRN (19:27)
[2022-01-25] MEDS: Albuterol/Ipratropium 3.0-0.5 MG/3 ML Neb Soln NEB SCH (19:27)
[2022-01-25] MEDS: Latanoprost 0.005% Ophth Soln 2.5 ML Bottle EYEBOTH SCH (19:32)
[2022-01-25] MEDS: [UNRECOGNIZED DRUG - OTHER] PO SCH ×2 (19:44→21:54)
[2022-01-25] MEDS ORDERED: Melatonin 3 MG Tab PO PRN (20:47)
[2022-01-26] MEDS: Acetaminophen 325 MG Tab PO PRN ×3 (01:22→12:18)
[2022-01-26] MEDS: [UNRECOGNIZED DRUG - OTHER] PO SCH ×2 (07:57→17:48)
[2022-01-26] MEDS: [UNRECOGNIZED DRUG - OTHER] PO SCH (07:57)
[2022-01-26] MEDS: BUDESONIDE INH SCH (08:00)
[2022-01-26] MEDS: Albuterol/Ipratropium 3.0-0.5 MG/3 ML Neb Soln NEB SCH ×4 (08:00→19:53)
[2022-01-26] MEDS ORDERED: Beta-Carotene (Vitamin A) w/Vitamin C & E plus Minerals Tab PO SCH (08:00)
[2022-01-26] MEDS: FORMOTEROL FUMARATE INH SCH (08:00)
[2022-01-26] MEDS: Calcium Carbonate/Magnesium Oxide/Zinc Oxide Tab PO SCH (08:01)
[2022-01-26] MEDS: Lisinopril 10 MG Tab PO SCH (08:01)
[2022-01-26] MEDS: Metoprolol Succinate 25 MG Tab.ER PO SCH (08:01)
[2022-01-26] MEDS: methylPREDNISolone Sodium Succinate 125 MG/2 ML SDV IVPUSH SCH (08:02)
[2022-01-26] MEDS: Cholecalciferol (Vitamin D3) 25 MCG Tab PO SCH (08:03)
[2022-01-26] MEDS ORDERED: Beta-Carotene (Vitamin A) w/Vitamin C & E plus Minerals Tab ONE (08:06)
[2022-01-26] MEDS: Sodium Chloride 0.9% 1,000 ML IV SCH (08:50)
[2022-01-26] MEDS ORDERED: Sodium Chloride 0.9% 500 ML IV ONE (09:30)
[2022-01-26] MEDS: Enoxaparin 40 MG/0.4 ML Syringe SUBCUT SCH (11:41)
[2022-01-26] MEDS ORDERED: SUMAtriptan 6 MG/0.5 ML SDV SUBCUT ONE (14:28)
[2022-01-26] MEDS: Levofloxacin/Dextrose 5%-Water 750 MG in Premix Bag 1 BAG IV SCH (16:27)
[2022-01-26] MEDS: Latanoprost 0.005% Ophth Soln 2.5 ML Bottle EYEBOTH SCH (19:51)
[2022-01-26] MEDS ORDERED: Diltiazem 25 MG/5 ML SDV IVPUSH ONE (22:10)
[2022-01-27] MEDS: Sodium Chloride 0.9% 1,000 ML IV SCH (01:44)
[2022-01-27] MEDS: Albuterol/Ipratropium 3.0-0.5 MG/3 ML Neb Soln NEB SCH ×4 (07:52→19:50)
[2022-01-27] MEDS: methylPREDNISolone Sodium Succinate 125 MG/2 ML SDV IVPUSH SCH (07:52)
[2022-01-27] MEDS: Lisinopril 10 MG Tab PO SCH (07:53)
[2022-01-27] MEDS: Calcium Carbonate/Magnesium Oxide/Zinc Oxide Tab PO SCH (07:53)
[2022-01-27] MEDS: Cholecalciferol (Vitamin D3) 25 MCG Tab PO SCH (07:53)
[2022-01-27] MEDS: Metoprolol Succinate 25 MG Tab.ER PO SCH (07:53)
[2022-01-27] MEDS ORDERED: Beta-Carotene (Vitamin A) w/Vitamin C & E plus Minerals Tab ONE (08:11)
[2022-01-27] MEDS: [UNRECOGNIZED DRUG - OTHER] PO SCH ×2 (08:16→16:59)
[2022-01-27] MEDS: BUDESONIDE INH SCH (08:16)
[2022-01-27] MEDS: FORMOTEROL FUMARATE INH SCH (08:16)
[2022-01-27] MEDS: [UNRECOGNIZED DRUG - OTHER] PO SCH (08:17)
[2022-01-27] MEDS: Enoxaparin 40 MG/0.4 ML Syringe SUBCUT SCH (11:22)
[2022-01-27] MEDS: guaiFENesin 200 MG Tab PO PRN ×2 (13:48→21:09)
[2022-01-27] MEDS: Levofloxacin/Dextrose 5%-Water 750 MG in Premix Bag 1 BAG IV SCH (16:44)
[2022-01-27] MEDS: Latanoprost 0.005% Ophth Soln 2.5 ML Bottle EYEBOTH SCH (19:50)
[2022-01-28] MEDS: guaiFENesin 200 MG Tab PO PRN ×2 (02:47→10:13)
[2022-01-28] MEDS ORDERED: Beta-Carotene (Vitamin A) w/Vitamin C & E plus Minerals Tab ONE (07:51)
[2022-01-28] MEDS: methylPREDNISolone Sodium Succinate 125 MG/2 ML SDV IVPUSH SCH (08:03)
[2022-01-28] MEDS: Calcium Carbonate/Magnesium Oxide/Zinc Oxide Tab PO SCH (08:03)
[2022-01-28] MEDS: Albuterol/Ipratropium 3.0-0.5 MG/3 ML Neb Soln NEB SCH ×2 (08:03→11:11)
[2022-01-28] MEDS: Cholecalciferol (Vitamin D3) 25 MCG Tab PO SCH (08:03)
[2022-01-28] MEDS: Metoprolol Succinate 25 MG Tab.ER PO SCH (08:04)
[2022-01-28] MEDS: Lisinopril 10 MG Tab PO SCH (08:05)
[2022-01-28] MEDS: BUDESONIDE INH SCH (09:09)
[2022-01-28] MEDS: [UNRECOGNIZED DRUG - OTHER] PO SCH (09:09)
[2022-01-28] MEDS: [UNRECOGNIZED DRUG - OTHER] PO SCH (09:09)
[2022-01-28] MEDS: FORMOTEROL FUMARATE INH SCH (09:09)
[2022-01-28] MEDS: Enoxaparin 40 MG/0.4 ML Syringe SUBCUT SCH (11:10)
[2022-01-28] MEDS: Levofloxacin/Dextrose 5%-Water 750 MG in Premix Bag 1 BAG IV SCH (16:22)
[2022-01-28] MEDS ORDERED: Levofloxacin 500 MG Tab PO ONE (16:34)
== END 2022-01-28 17:14 | disposition home or self-care (01) | DRG 202 ==
LOC: CC.MS 13:49 → CC.FCMC 13:49 → UNDOADMIN 15:46 → CC.MS 15:46
PROVIDERS: ADMIT Family Medicine; ATTEND Nurse Practitioner Family
DX: J20.9 Acute bronchitis, unspecified (principal); J18.9 Pneumonia, unspecified organism; I10 Essential (primary) hypertension; H54.7 Unspecified visual loss; E78.00 Pure hypercholesterolemia, unspecified; Z20.822 Contact with and (suspected) exposure to COVID-19; R00.0 Tachycardia, unspecified; I48.91 Unspecified atrial fibrillation; J45.909 Unspecified asthma, uncomplicated; E86.0 Dehydration; Z96.659 Presence of unspecified artificial knee joint; Z98.890 Other specified postprocedural states; Z90.710 Acquired absence of both cervix and uterus; Z79.52 Long term (current) use of systemic steroids; Z79.899 Other long term (current) drug therapy; Z88.0 Allergy status to penicillin; Z88.2 Allergy status to sulfonamides; Z88.1 Allergy status to other antibiotic agents
CPT/HCPCS: 36415; 71046; 80053; 83605; 85025; 86140; 87070; 87205; 87804; 93005; 94640; A9270-GY; J1650; J1885; J1956; J2405; J2930; J3030; J7030; J7620-GY; U0002

== ENCOUNTER 2022-02-28 08:30 | Inpatient (IN) | payer MEDICARE, OTHER ==
[2022-02-28] MEDS ORDERED: Sodium Chloride 0.9% 10 ML Syringe FLUSH PRN (08:47)
[2022-02-28] MEDS ORDERED: Albuterol/Ipratropium 3.0-0.5 MG/3 ML Neb Soln NEB ONE ×3 (08:49→11:13)
[2022-02-28 09:18] LABS: PTT,PARTIAL THROMBOPLSTIN TIME 24.1 SEC (23.2-32.3)
[2022-02-28] MEDS ORDERED: Iopamidol 755 Mg/ML 100 ML Bottle IVPUSH ONE (09:37)
[2022-02-28] MEDS ORDERED: methylPREDNISolone Sodium Succinate 125 MG/2 ML SDV IVPUSH STA (10:41)
[2022-02-28] MEDS ORDERED: Acetaminophen 325 MG Tab PO ONE (11:24)
[2022-02-28] MEDS ORDERED: Ondansetron 4 MG/2 ML SDV IVPUSH ONE (12:32)
[2022-02-28] MEDS ORDERED: Acetaminophen 500 MG Tab PO PRN (12:32)
[2022-02-28] MEDS ORDERED: Ondansetron 4 MG/2 ML SDV IVPUSH PRN (12:34)
[2022-02-28] MEDS ORDERED: Polyethylene Glycol 3350 Powder 17 GM Packet PO PRN (12:35)
[2022-02-28] MEDS: Albuterol/Ipratropium 3.0-0.5 MG/3 ML Neb Soln NEB PRN ×3 (14:24→20:32)
[2022-02-28] MEDS: MINERALS PO SCH (16:38)
[2022-02-28] MEDS: LUTEIN PO SCH (16:38)
[2022-02-28] MEDS: VIT A C PO SCH (16:38)
[2022-02-28] MEDS: [UNRECOGNIZED DRUG - OTHER] PO SCH (16:38)
[2022-02-28] MEDS: [UNRECOGNIZED DRUG - OTHER] PO SCH (16:38)
[2022-02-28] MEDS: Calcium Carbonate/Magnesium Oxide/Zinc Oxide Tab PO SCH (16:40)
[2022-02-28] MEDS: Cholecalciferol (Vitamin D3) 25 MCG Tab PO SCH (16:41)
[2022-02-28] MEDS: methylPREDNISolone Sodium Succinate 125 MG/2 ML SDV IVPUSH SCH (17:06)
[2022-02-28] MEDS ORDERED: Benzonatate 100 MG Cap PO PRN (19:53)
[2022-02-28] MEDS ORDERED: Enoxaparin 40 MG/0.4 ML Syringe SUBCUT SCH (20:00)
[2022-02-28] MEDS: Latanoprost 0.005% Ophth Soln 2.5 ML Bottle **PTOM EYEBOTH SCH (20:14)
[2022-03-01] MEDS: methylPREDNISolone Sodium Succinate 125 MG/2 ML SDV IVPUSH SCH ×2 (00:28→05:47)
[2022-03-01] MEDS: Calcium Carbonate/Magnesium Oxide/Zinc Oxide Tab PO SCH (07:59)
[2022-03-01] MEDS: Lisinopril 20 MG Tab PO SCH (07:59)
[2022-03-01] MEDS: Metoprolol Succinate 25 MG Tab.ER PO SCH (07:59)
[2022-03-01] MEDS: Cholecalciferol (Vitamin D3) 25 MCG Tab PO SCH (08:00)
[2022-03-01] MEDS: LUTEIN PO SCH ×2 (08:00→17:06)
[2022-03-01] MEDS: [UNRECOGNIZED DRUG - OTHER] PO SCH ×2 (08:00→17:06)
[2022-03-01] MEDS: MINERALS PO SCH ×2 (08:00→17:06)
[2022-03-01] MEDS: Enoxaparin 40 MG/0.4 ML Syringe SUBCUT SCH (08:00)
[2022-03-01] MEDS: VIT A C PO SCH ×2 (08:00→17:06)
[2022-03-01] MEDS: BUDESONIDE INH SCH (08:01)
[2022-03-01] MEDS: FORMOTEROL FUMARATE INH SCH (08:01)
[2022-03-01] MEDS: [UNRECOGNIZED DRUG - OTHER] PO SCH (08:01)
[2022-03-01] MEDS ORDERED: SUMAtriptan 6 MG/0.5 ML SDV SUBCUT ONE (08:39)
[2022-03-01] MEDS: Albuterol/Ipratropium 3.0-0.5 MG/3 ML Neb Soln NEB PRN (10:02)
[2022-03-01] MEDS: Albuterol/Ipratropium 3.0-0.5 MG/3 ML Neb Soln NEB SCH ×3 (11:36→19:34)
[2022-03-01] MEDS ORDERED: guaiFENesin 100 MG/5 ML Soln 5 ML UD Cup PO PRN (19:04)
[2022-03-01] MEDS: Latanoprost 0.005% Ophth Soln 2.5 ML Bottle **PTOM EYEBOTH SCH (19:34)
[2022-03-02] MEDS: methylPREDNISolone Sodium Succinate 125 MG/2 ML SDV IVPUSH SCH (07:51)
[2022-03-02] MEDS: Lisinopril 20 MG Tab PO SCH (07:52)
[2022-03-02] MEDS: Metoprolol Succinate 25 MG Tab.ER PO SCH (07:53)
[2022-03-02] MEDS: Calcium Carbonate/Magnesium Oxide/Zinc Oxide Tab PO SCH (07:53)
[2022-03-02] MEDS: Cholecalciferol (Vitamin D3) 25 MCG Tab PO SCH (07:53)
[2022-03-02] MEDS: Enoxaparin 40 MG/0.4 ML Syringe SUBCUT SCH (07:54)
[2022-03-02] MEDS: Albuterol/Ipratropium 3.0-0.5 MG/3 ML Neb Soln NEB SCH ×4 (07:54→19:08)
[2022-03-02] MEDS: [UNRECOGNIZED DRUG - OTHER] PO SCH ×2 (08:08→19:09)
[2022-03-02] MEDS: MINERALS PO SCH ×2 (08:08→19:09)
[2022-03-02] MEDS: LUTEIN PO SCH ×2 (08:08→19:09)
[2022-03-02] MEDS: VIT A C PO SCH ×2 (08:08→19:09)
[2022-03-02] MEDS: [UNRECOGNIZED DRUG - OTHER] PO SCH (08:08)
[2022-03-02] MEDS: FORMOTEROL FUMARATE INH SCH (08:11)
[2022-03-02] MEDS: BUDESONIDE INH SCH (08:11)
[2022-03-02] MEDS: Latanoprost 0.005% Ophth Soln 2.5 ML Bottle **PTOM EYEBOTH SCH (19:09)
[2022-03-03] MEDS: Enoxaparin 40 MG/0.4 ML Syringe SUBCUT SCH (07:30)
[2022-03-03] MEDS: methylPREDNISolone Sodium Succinate 125 MG/2 ML SDV IVPUSH SCH (07:31)
[2022-03-03] MEDS: Albuterol/Ipratropium 3.0-0.5 MG/3 ML Neb Soln NEB SCH ×3 (07:31→15:11)
[2022-03-03] MEDS: Cholecalciferol (Vitamin D3) 25 MCG Tab PO SCH (07:33)
[2022-03-03] MEDS: Calcium Carbonate/Magnesium Oxide/Zinc Oxide Tab PO SCH (07:33)
[2022-03-03] MEDS: FORMOTEROL FUMARATE INH SCH (07:48)
[2022-03-03] MEDS: [UNRECOGNIZED DRUG - OTHER] PO SCH (07:48)
[2022-03-03] MEDS: MINERALS PO SCH (07:48)
[2022-03-03] MEDS: Lisinopril 20 MG Tab PO SCH (07:48)
[2022-03-03] MEDS: BUDESONIDE INH SCH (07:48)
[2022-03-03] MEDS: Metoprolol Succinate 25 MG Tab.ER PO SCH (07:48)
[2022-03-03] MEDS: VIT A C PO SCH (07:48)
[2022-03-03] MEDS: LUTEIN PO SCH (07:48)
[2022-03-03] MEDS: [UNRECOGNIZED DRUG - OTHER] PO SCH (07:49)
[2022-03-04] MEDS ORDERED: predniSONE 20 MG Tab PO SCH (08:00)
== END 2022-03-03 15:15 | disposition swing bed (61) | DRG 202 ==
LOC: CC.ED 08:30 → CC.MS 12:18
PROVIDERS: ADMIT Nurse Practitioner Family; ATTEND Nurse Practitioner Family
DX: J20.9 Acute bronchitis, unspecified (principal); J40 Bronchitis, not specified as acute or chronic; J45.901 Unspecified asthma with (acute) exacerbation; G43.909 Migraine, unspecified, not intractable, without status migrainosus; H54.7 Unspecified visual loss; E78.00 Pure hypercholesterolemia, unspecified; Z79.51 Long term (current) use of inhaled steroids; I10 Essential (primary) hypertension; Z20.822 Contact with and (suspected) exposure to COVID-19; Z96.659 Presence of unspecified artificial knee joint; Z79.52 Long term (current) use of systemic steroids; Z79.899 Other long term (current) drug therapy; Z90.710 Acquired absence of both cervix and uterus; Z88.0 Allergy status to penicillin; Z91.09 Other allergy status, other than to drugs and biological substances; Z88.2 Allergy status to sulfonamides; Z98.890 Other specified postprocedural states
CPT/HCPCS: 36415; 71046; 71275; 80053; 83605; 84484; 85025; 85379; 85610; 85730; 87804 ×2; 87807; 93005; 94640 ×3; 96374; 99285; A9270; J2930; Q9967; U0002; 97110-GP; 97161-GP; J1650; J3030; J7620-GY

== ENCOUNTER 2022-03-03 15:15 | Inpatient (IN) | payer MEDICARE, OTHER ==
[2022-03-03] MEDS ORDERED: guaiFENesin 100 MG/5 ML Soln 5 ML UD Cup PO PRN (16:06)
[2022-03-03] MEDS ORDERED: Ondansetron 4 MG/2 ML SDV IVPUSH PRN (16:06)
[2022-03-03] MEDS ORDERED: Benzonatate 100 MG Cap PO PRN (16:06)
[2022-03-03] MEDS ORDERED: Acetaminophen 500 MG Tab PO PRN (16:06)
[2022-03-03] MEDS ORDERED: Sodium Chloride 0.9% 10 ML Syringe FLUSH PRN ×2 (16:06)
[2022-03-03] MEDS ORDERED: Polyethylene Glycol 3350 Powder 17 GM Packet PO PRN (16:06)
[2022-03-03] MEDS ORDERED: Albuterol/Ipratropium 3.0-0.5 MG/3 ML Neb Soln NEB PRN ×2 (16:06→16:08)
[2022-03-03] MEDS ORDERED: MINERALS PO SCH (17:30)
[2022-03-03] MEDS ORDERED: [UNRECOGNIZED DRUG - OTHER] PO SCH (17:30)
[2022-03-03] MEDS ORDERED: LUTEIN PO SCH (17:30)
[2022-03-03] MEDS ORDERED: VIT A C PO SCH (17:30)
[2022-03-03] MEDS: Latanoprost 0.005% Ophth Soln 2.5 ML Bottle **OWN MED EYEBOTH SCH (19:57)
[2022-03-03] MEDS: Albuterol/Ipratropium 3.0-0.5 MG/3 ML Neb Soln NEB SCH (19:57)
[2022-03-03] MEDS ORDERED: Non-Formulary Medication 1 Each (Lutein/Minerals/Vit A,C & E [Ocuvite] 1 EACH Tablet) PO SCH (20:00)
[2022-03-04] MEDS: Albuterol/Ipratropium 3.0-0.5 MG/3 ML Neb Soln NEB SCH ×4 (07:39→19:51)
[2022-03-04] MEDS: Enoxaparin 40 MG/0.4 ML Syringe SUBCUT SCH (07:39)
[2022-03-04] MEDS: predniSONE 20 MG Tab PO SCH (07:40)
[2022-03-04] MEDS: Calcium Carbonate/Magnesium Oxide/Zinc Oxide Tab PO SCH (07:40)
[2022-03-04] MEDS: Cholecalciferol (Vitamin D3) 25 MCG Tab PO SCH (07:40)
[2022-03-04] MEDS: Metoprolol Succinate 25 MG Tab.ER PO SCH (07:47)
[2022-03-04] MEDS: Lisinopril 20 MG Tab PO SCH (07:47)
[2022-03-04] MEDS: [UNRECOGNIZED DRUG - OTHER] PO SCH ×2 (07:50→19:52)
[2022-03-04] MEDS: FORMOTEROL FUMARATE INH SCH (07:50)
[2022-03-04] MEDS: BUDESONIDE INH SCH (07:50)
[2022-03-04] MEDS: [UNRECOGNIZED DRUG - OTHER] PO SCH (07:50)
[2022-03-04] MEDS ORDERED: [UNRECOGNIZED DRUG - OTHER] PO SCH (08:00)
[2022-03-04] MEDS ORDERED: Non-Formulary Medication 1 Each (Budesonide/Formoterol Fumarate [Symbicort 80-4.5 Mcg Inha INH SCH (08:00)
[2022-03-04] MEDS ORDERED: Lisinopril 20 MG Tab PO SCH (08:00)
[2022-03-04] MEDS ORDERED: Cholecalciferol (Vitamin D3) 25 MCG Tab PO SCH (08:00)
[2022-03-04] MEDS ORDERED: Non-Formulary Medication 1 Each (Metoprolol Succinate [Toprol Xl 50mg] 50 MG Tab.Er) PO SCH (08:00)
[2022-03-04] MEDS ORDERED: [UNRECOGNIZED DRUG - OTHER] PO SCH (08:00)
[2022-03-04] MEDS: Latanoprost 0.005% Ophth Soln 2.5 ML Bottle **OWN MED EYEBOTH SCH (19:52)
[2022-03-05] MEDS: Lisinopril 20 MG Tab PO SCH (07:53)
[2022-03-05] MEDS: predniSONE 20 MG Tab PO SCH (07:53)
[2022-03-05] MEDS: Cholecalciferol (Vitamin D3) 25 MCG Tab PO SCH (07:53)
[2022-03-05] MEDS: Metoprolol Succinate 25 MG Tab.ER PO SCH (07:53)
[2022-03-05] MEDS: Calcium Carbonate/Magnesium Oxide/Zinc Oxide Tab PO SCH (07:53)
[2022-03-05 07:54] VITALS: BP 171/86; PULSE 84
[2022-03-05] MEDS: Albuterol/Ipratropium 3.0-0.5 MG/3 ML Neb Soln NEB SCH (07:54)
[2022-03-05] MEDS: BUDESONIDE INH SCH (07:54)
[2022-03-05] MEDS: FORMOTEROL FUMARATE INH SCH (07:54)
[2022-03-05] MEDS: Enoxaparin 40 MG/0.4 ML Syringe SUBCUT SCH (07:54)
[2022-03-05] MEDS: [UNRECOGNIZED DRUG - OTHER] PO SCH (07:56)
[2022-03-05] MEDS: [UNRECOGNIZED DRUG - OTHER] PO SCH (07:56)
== END 2022-03-05 12:45 | disposition home or self-care (01) | DRG 203 ==
LOC: UNDOADMIN 15:15 → CC.MS 15:15 → UNDODISIN 03-05 12:45
PROVIDERS: ADMIT Nurse Practitioner Family; ATTEND Nurse Practitioner Family
DX: J45.901 Unspecified asthma with (acute) exacerbation (principal); Z79.52 Long term (current) use of systemic steroids; Z79.899 Other long term (current) drug therapy
CPT/HCPCS: 94640; 97110-GP; A9270-GY; J1650; J7512; J7620-GY

== ENCOUNTER 2022-05-14 09:06 | Observation (INO) | payer MEDICARE, OTHER ==
[2022-05-14] MEDS ORDERED: Sodium Chloride 0.9% 10 ML Syringe FLUSH PRN (10:10)
[2022-05-14] MEDS ORDERED: Albuterol 0.083% 2.5 MG/3 ML Neb Soln NEB PRN (10:17)
[2022-05-14] MEDS: Albuterol/Ipratropium 3.0-0.5 MG/3 ML Neb Soln NEB SCH ×4 (10:49→19:09)
[2022-05-14] MEDS: Dexamethasone 4 MG/ML SDV IVPUSH SCH (10:50)
[2022-05-14 10:54] LABS: CHLORIDE,CL 97 mEq/L (98-106); SODIUM,NA 140 mEq/L (136-145)
[2022-05-14 11:01] LABS: ESTIMATED GFR 90 mL/min (>=60)
[2022-05-14] MEDS ORDERED: Magnesium Hydroxide 400 MG/5 ML Susp 30 ML Cup PO PRN (11:31)
[2022-05-14] MEDS ORDERED: Docusate Sodium 100 MG Cap PO PRN (11:31)
[2022-05-14] MEDS ORDERED: Bisacodyl 10 MG Supp RECTAL PRN (11:31)
[2022-05-14] MEDS ORDERED: Acetaminophen 325 MG Tab PO PRN (11:31)
[2022-05-14] MEDS ORDERED: Sodium Chloride 0.9% 1,000 ML IV ONE (12:30)
[2022-05-14] MEDS: Cholecalciferol (Vitamin D3) 25 MCG Tab PO SCH (13:19)
[2022-05-14] MEDS: guaiFENesin 200 MG Tab PO SCH ×2 (18:23→19:09)
[2022-05-14] MEDS: Oseltamivir 75 MG Cap PO SCH (18:26)
[2022-05-14] MEDS ORDERED: LATANOPROST EYEBOTH SCH (20:00)
[2022-05-15] MEDS ORDERED: Enoxaparin 40 MG/0.4 ML Syringe SUBCUT SCH (08:00)
[2022-05-15] MEDS: guaiFENesin 200 MG Tab PO SCH (08:12)
[2022-05-15] MEDS: Dexamethasone 4 MG/ML SDV IVPUSH SCH (08:12)
[2022-05-15] MEDS: Oseltamivir 75 MG Cap PO SCH (08:12)
[2022-05-15] MEDS: Albuterol/Ipratropium 3.0-0.5 MG/3 ML Neb Soln NEB SCH ×2 (08:12→11:24)
[2022-05-15] MEDS ORDERED: Lisinopril 20 MG Tab **PTOM PO SCH (08:45)
[2022-05-15] MEDS: Cholecalciferol (Vitamin D3) 25 MCG Tab PO SCH (11:24)
[2022-05-15] MEDS ORDERED: Albuterol 90 MCG/6.7 GM Inhaler INH PRN (11:27)
[2022-05-15] MEDS ORDERED: [UNRECOGNIZED DRUG - OTHER] PO SCH (12:00)
[2022-05-15] MEDS ORDERED: [UNRECOGNIZED DRUG - OTHER] PO SCH (12:00)
[2022-05-15] MEDS ORDERED: LUTEIN PO SCH (12:00)
[2022-05-15] MEDS ORDERED: MINERALS PO SCH (12:00)
[2022-05-15] MEDS ORDERED: VIT A C PO SCH (12:00)
[2022-05-15] MEDS ORDERED: Calcium Carbonate/Magnesium Oxide/Zinc Oxide Tab PO SCH (12:30)
== END 2022-05-15 12:30 | disposition home or self-care (01) ==
LOC: CC.FCMC 09:06 → CC.MS 09:06 → UNDOADMOB 10:04 → INTOOBSV 10:04 → CC.MS 10:04
PROVIDERS: ADMIT Physician Assistant Medical; ATTEND Physician Assistant Medical
DX: J45.901 Unspecified asthma with (acute) exacerbation (principal); J11.1 Influenza due to unidentified influenza virus with other respiratory manifestations; I10 Essential (primary) hypertension; E78.00 Pure hypercholesterolemia, unspecified; Z79.899 Other long term (current) drug therapy; Z88.0 Allergy status to penicillin; Z88.2 Allergy status to sulfonamides; Z98.890 Other specified postprocedural states; Z96.659 Presence of unspecified artificial knee joint; Z90.710 Acquired absence of both cervix and uterus; Z20.822 Contact with and (suspected) exposure to COVID-19
CPT/HCPCS: 36415; 71046; 80053; 81001; 83605; 83735; 84484; 85025; 87804; 93005; 93306; 94640; 96361; 96372; 96374; 97161-GP; 99223; 99239; A9270-GY; G0378; J1100; J1650; J7030; J7620-GY; U0002

== ENCOUNTER 2025-02-26 09:11 | Day surgery (SDC) | payer MEDICARE ==
[2025-02-26] MEDS ORDERED: Ketamine 200 MG/20 ML MDV ONE (09:45)
[2025-02-26] MEDS ORDERED: Propofol 200 MG/20 ML SDV ONE (09:45)
[2025-02-26] MEDS ORDERED: fentaNYL 50 MCG/ML SDV ONE (09:45)
[2025-02-26] MEDS: Lactated Ringers 1,000 ML IV SCH (09:46)
[2025-02-26 10:51] LABS: CREATININE 0.5 mg/dL (0.6-1.0); EST CRCL DRUG DOSING (CG) 66.24 mL/min; ESTIMATED GFR 92.0 mL/min (>=60)
[2025-02-26] MEDS: Barium Sulfate w/v 2% Oral Susp 450 ML Bottle PO ONE (12:44)
[2025-02-26] MEDS: Iopamidol 755 Mg/ML 100 ML Bottle IVPUSH ONE (12:44)
== END 2025-02-26 12:45 | disposition home or self-care (01) ==
LOC: CC.SDS 09:11
PROVIDERS: ATTEND Family Medicine
DX: C19 Malignant neoplasm of rectosigmoid junction (principal); K29.50 Unspecified chronic gastritis without bleeding; B96.81 Helicobacter pylori [H. pylori] as the cause of diseases classified elsewhere; D64.9 Anemia, unspecified; J45.909 Unspecified asthma, uncomplicated; I10 Essential (primary) hypertension; Z88.0 Allergy status to penicillin; Z88.8 Allergy status to other drugs, medicaments and biological substances; Z79.899 Other long term (current) drug therapy
CPT/HCPCS: 00813; 74177; 82565; 87077; 88305; 88341; 88342; 99100; J2704; J3010; J3490; J7120; Q9967